=== PATIENT | female | born 1935 | race African-American/Black ===

== ENCOUNTER 2016-05-23 00:46 | Emergency (ER) | payer MEDICARE, MEDICAID ==
[2016-05-23] MEDS ORDERED: ACETAMINOPHEN 325 MG TABLET PO ONE (01:03)
--- NOTE | 2016-05-23 01:06 | ER Document Report ---
ED Medical Screen (RME) - General Chief Complaint: Headache <24 hrs old Stated Complaint: HEADACHE Notes: Patient is an 80-year-old female that comes emergency department for chief complaint of a headache that started this evening, she states it is on both sides for head, above her ears. She denies injury, fever, focal numbness or weakness, visual changes, imbalance. She is on aspirin, denies history of frequent headaches but states she has had similar headaches in the past. TRAVEL OUTSIDE OF THE [place] IN LAST 30 DAYS: No - Related Data Allergies/Adverse Reactions: No Known Allergies Allergy (Verified 07/13/15 23:10) Past Medical History - Social History Chew tobacco use (# tins/day): No Frequency of alcohol use: None Drug Abuse: None Family history: Reviewed & Not Pertinent - Past Medical History Cardiac Medical History: Reports: Hx Hypercholesterolemia, Hx Hypertension Denies: Hx Coronary Artery Disease, Hx Heart Attack Pulmonary Medical History: Denies: Hx Asthma, Hx Bronchitis, Hx COPD, Hx Pneumonia Neurological Medical History: Denies: Hx Cerebrovascular Accident, Hx Seizures Endocrine Medical History: Reports: Hx Diabetes Mellitus Type 2 Renal/ Medical History: Denies: Hx Peritoneal Dialysis GI Medical History: Reports: Hx Gastroesophageal Reflux Disease Musculoskeltal Medical History: Reports Hx Arthritis Past Surgical History: Reports: Hx Hysterectomy, Hx Orthopedic Surgery - Left Ankle. Denies: Hx Pacemaker - Immunizations Hx Diphtheria, Pertussis, Tetanus Vaccination: Yes Physical Exam - Vital signs Vitals: Temp Pulse Resp BP Pulse Ox 97.9 F 66 16 150/71 H 98 05/23/16 00:58 05/23/16 00:58 05/23/16 00:58 05/23/16 00:58 05/23/16 00:58 - Neurological Cognition: No: Confused, Inattentive, Short term memory loss Orientation: No: Disoriented to person, Disoriented to place, Disoriented to time [place] Coma Scale Eye Opening: Spontaneous [place] Coma Scale Verbal: Oriented [place] Coma Scale Motor: Obeys Commands [place] Coma Scale Total: 15 Speech: Normal. No: Dysarthria Cranial nerves: Normal. No: Facial palsy Cerebellar coordination: Other - walks with a cane Course - Re-evaluation Re-evalutation: Patient occasionally squinting her eyes and rubbing her head, otherwise no signs of distress, no focal neurological deficits. She states she thinks she has had a stroke or TIA. Patient somewhat poor historian, due to age and symptoms performing CT. Discussed with Dr. Carballo. - Vital Signs Vital signs: Temp Pulse Resp BP Pulse Ox 97.9 F 66 16 150/71 H 98 05/23/16 00:58 05/23/16 00:58 05/23/16 00:58 05/23/16 00:58 05/23/16 00:58
[2016-05-23 02:29] LABS: ABSOLUTE BASOPHILS # (AUTO) 0.1 10^3/uL (0.0-0.2); ABSOLUTE EOSINOPHILS # (AUTO) 0.1 10^3/uL (0.0-0.6); ABSOLUTE LYMPHOCYTES (AUTO) 1.9 10^3/uL (0.5-4.7); ABSOLUTE MONOCYTES (AUTO) 0.4 10^3/uL (0.1-1.4); ABSOLUTE NEUT (AUTO) 4.8 10^3/uL (1.7-8.2); BASOPHILS % (AUTO) 0.8 % (0-2); EOSINOPHILS % (AUTO) 0.9 % (0-6); HEMATOCRIT 37.8 % (36.0-47.0); HEMOGLOBIN 12.4 g/dL (12.0-15.5); HGB HCT DIFFERENCE -0.6; MEAN CORPUSCULAR HEMOGLOBIN 27.7 pg (27.0-33.4); MEAN CORPUSCULAR HGB CONC 32.7 g/dL (32.0-36.0); MEAN CORPUSCULAR VOLUME 85 fl (80-97); MONOCYTES % (AUTO) 5.7 % (3-13); RED BLOOD COUNT 4.45 10^6/uL (3.72-5.28); RED CELL DISTRIBUTION WIDTH 13.8 % (11.5-14.0); SEGMENTED NEUTROPHILS % (AUTO) 66.6 % (42-78); WHITE BLOOD COUNT 7.3 10^3/uL (4.0-10.5)
[2016-05-23 02:51] LABS: ANION GAP 13 (5-19); BLOOD UREA NITROGEN 10 mg/dL (7-20); CALCIUM 9.2 mg/dL (8.4-10.2); CARBON DIOXIDE 24 mmol/L (22-30); CHLORIDE 105 mmol/L (98-107); CREATININE RESULT 0.68 mg/dL (0.52-1.25); GLUCOSE 96 mg/dL (75-110); POTASSIUM 4.2 mmol/L (3.6-5.0); SODIUM 141.8 mmol/L (137-145)
--- NOTE | 2016-05-23 04:24 | ER Document Report ---
ED General - General Chief Complaint: Headache <24 hrs old Stated Complaint: HEADACHE Information source: Patient, Relative Notes: This is an 80-year-old -[place] Citizen female who presents to the emergency department for evaluation of a headache. She states that the headache began last night and is described as a throbbing bitemporal headache. She denies any fevers or chills. She has had no change in her vision. She's had no nausea or vomiting. She also denies any weakness or paresthesias or imbalance. TRAVEL OUTSIDE OF THE [place] IN LAST 30 DAYS: No - Related Data Allergies/Adverse Reactions: No Known Allergies Allergy (Verified 07/13/15 23:10) Past Medical History - Social History Smoking Status: Never Smoker Chew tobacco use (# tins/day): No Frequency of alcohol use: None Drug Abuse: None Family History: Reviewed & Not Pertinent Patient has suicidal ideation: No Patient has homicidal ideation: No - Past Medical History Cardiac Medical History: Reports: Hx Hypercholesterolemia, Hx Hypertension Denies: Hx Coronary Artery Disease, Hx Heart Attack Pulmonary Medical History: Denies: Hx Asthma, Hx Bronchitis, Hx COPD, Hx Pneumonia Neurological Medical History: Denies: Hx Cerebrovascular Accident, Hx Seizures Endocrine Medical History: Reports: Hx Diabetes Mellitus Type 2 Renal/ Medical History: Denies: Hx Peritoneal Dialysis GI Medical History: Reports: Hx Gastroesophageal Reflux Disease Musculoskeltal Medical History: Reports Hx Arthritis Past Surgical History: Reports: Hx Hysterectomy, Hx Orthopedic Surgery - Left Ankle. Denies: Hx Pacemaker - Immunizations Hx Diphtheria, Pertussis, Tetanus Vaccination: Yes Hx Pneumococcal Vaccination: 05/01/12 Review of Systems - Review of Systems Constitutional: denies: Chills, Fever EENT: No symptoms reported. denies: Eye pain, Nose congestion Cardiovascular: No symptoms reported. denies: Chest pain Respiratory: No symptoms reported. denies: Short of breath Gastrointestinal: No symptoms reported. denies: Nausea, Vomiting Genitourinary: No symptoms reported Musculoskeletal: No symptoms reported Neurological/Psychological: See HPI Physical Exam - Vital signs Vitals: Temp Pulse Resp BP Pulse Ox 97.9 F 66 16 150/71 H 98 05/23/16 00:58 05/23/16 00:58 05/23/16 00:58 05/23/16 00:58 05/23/16 00:58 - Notes Notes: PHYSICAL EXAMINATION: GENERAL: Well-appearing elderly female, pleasant and conversant and in no acute distress. HEAD: Atraumatic, normocephalic. No temporal tenderness to palpation EYES: Pupils equal round and reactive to light, extraocular movements intact, sclera anicteric, conjunctiva are normal. ENT: nares patent, oropharynx clear without exudates. Moist mucous membranes. NECK: Normal range of motion, supple without lymphadenopathy LUNGS: Breath sounds clear to auscultation bilaterally and equal. No wheezes rales or rhonchi. HEART: Regular rate and rhythm without murmurs ABDOMEN: Soft, nontender, normoactive bowel sounds. No guarding, no rebound. No masses appreciated. EXTREMITIES: Normal range of motion, no pitting or edema. No cyanosis. NEUROLOGICAL: Cranial nerves grossly intact. Normal speech motor strength +5 over 5 in the bilateral upper and lower extremities. Sensation intact. PSYCH: Normal mood, normal affect. SKIN: Warm, Dry, normal turgor, no rashes or lesions noted. Course - Re-evaluation Re-evalutation: 05/23/16 04:28 During the time that she has been in the emergency department the patient states that her headache has resolved after taking the Tylenol. At this time she feels fine and has no complaints. Her head CT is reviewed and is negative. Her labs are reassuring. She has a nonfocal and normal neurologic exam. At this time she'll be discharged home to follow up with her primary care physician. We discussed strict return precautions to include fevers and worsening headache and balance numbness tingling. Patient and her daughter are both agreeable with this plan and all questions were answered. - Vital Signs Vital signs: Temp Pulse Resp BP Pulse Ox 97.1 F 74 18 133/88 H 95 05/23/16 04:52 05/23/16 04:52 05/23/16 04:52 05/23/16 04:52 05/23/16 04:52 - Laboratory Result Diagrams: 05/23/16 02:05 05/23/16 02:05 - Diagnostic Test Radiology reviewed: Reports reviewed - Head CT negative Discharge - Discharge Clinical Impression: Cephalgia Qualifiers: Headache type: unspecified Headache chronicity pattern: unspecified pattern Intractability: not intractable Qualified Code(s): R51 - Headache Condition: Stable Disposition: HOME, SELF-CARE Additional Instructions: Your laboratory and imaging studies in the ER today did not demonstrate any serious process at this time. Please follow up with your primary physician this week. You may take Tylenol as directed for headache. Return to the emergency department for any fever or worsening headache, or for any vision problems or numbness or tingling. Also return for any worsening symptoms or concerns. Referrals: MK COSTELLO PA-C [Primary Care Provider] - Follow up as needed
[2016-05-23 04:54] VITALS: BP 133/88
== END 2016-05-23 04:52 | disposition home or self-care (01) ==
LOC: ER 00:46
DX: R51 Headache (principal); E78.00 Pure hypercholesterolemia, unspecified; I10 Essential (primary) hypertension; E11.9 Type 2 diabetes mellitus without complications; Z90.710 Acquired absence of both cervix and uterus
CPT/HCPCS: 99284; 36415; 85025; 80048; 70450; A9270

== ENCOUNTER 2016-08-11 14:16 | Emergency (ER) | payer MEDICARE, MEDICAID ==
--- NOTE | 2016-08-11 14:45 | ER Document Report ---
ED General - General Chief Complaint: Arm Pain Stated Complaint: LEFT ARM PAIN Time Seen by Provider: 08/11/16 14:18 Notes: The patient is an 81-year-old female, past medical history hypertension, hyperlipidemia, OA, presents with 2 days of intermittent left bicep tingling and left thigh tingling. She has not had similar symptoms in the past. She denies headache, weakness, injury, back pain, neck pain, fevers, chest pain, shortness of breath, nausea, vomiting, ataxia, blurry vision or urinary symptoms. TRAVEL OUTSIDE OF THE [place] IN LAST 30 DAYS: No - Related Data Allergies/Adverse Reactions: No Known Allergies Allergy (Verified 07/13/15 23:10) Past Medical History - General Information source: Patient - Social History Smoking Status: Never Smoker Family History: Reviewed & Not Pertinent - Past Medical History Cardiac Medical History: Reports: Hx Hypercholesterolemia, Hx Hypertension Denies: Hx Coronary Artery Disease, Hx Heart Attack Pulmonary Medical History: Denies: Hx Asthma, Hx Bronchitis, Hx COPD, Hx Pneumonia Neurological Medical History: Denies: Hx Cerebrovascular Accident, Hx Seizures Endocrine Medical History: Reports: Hx Diabetes Mellitus Type 2 Renal/ Medical History: Denies: Hx Peritoneal Dialysis GI Medical History: Reports: Hx Gastroesophageal Reflux Disease Musculoskeltal Medical History: Reports Hx Arthritis Past Surgical History: Reports: Hx Hysterectomy, Hx Orthopedic Surgery - Left Ankle. Denies: Hx Pacemaker - Immunizations Hx Diphtheria, Pertussis, Tetanus Vaccination: Yes Hx Pneumococcal Vaccination: 05/01/12 Review of Systems - Review of Systems Notes: REVIEW OF SYSTEMS: CONSTITUTIONAL: -fevers, -chills EENT: -eye pain, -difficulty swallowing, -nasal congestion CARDIOVASCULAR:-chest pain, -syncope. RESPIRATORY: -cough, -SOB GASTROINTESTINAL: -abdominal pain, - nausea, -vomiting, -diarrhea GENITOURINARY: -dysuria, -hematuria MUSCULOSKELETAL: -back pain, -neck pain SKIN: -rash or skin lesions. HEMATOLOGIC: -easy bruising or bleeding. LYMPHATIC: -swollen, enlarged glands. NEUROLOGICAL: +left bicep and thigh tingling, -altered mental status or loss of consciousness, -headache PSYCHIATRIC: -anxiety, -depression. ALL OTHER SYSTEMS REVIEWED AND NEGATIVE. Physical Exam - Vital signs Vitals: Temp Pulse Resp BP Pulse Ox 98.9 F 73 18 138/66 H 97 08/11/16 14:20 08/11/16 14:20 08/11/16 14:20 08/11/16 14:20 08/11/16 14:20 - Notes Notes: PHYSICAL EXAMINATION: GENERAL: Well-appearing, well-nourished and in no acute distress. HEAD: Atraumatic, normocephalic. EYES: Pupils equal round and reactive to light, extraocular movements intact, sclera anicteric, conjunctiva are normal. ENT: nares patent, oropharynx clear without exudates. Moist mucous membranes. NECK: Normal range of motion, supple without lymphadenopathy LUNGS: Breath sounds clear to auscultation bilaterally and equal. No wheezes rales or rhonchi. HEART: Regular rate and rhythm without murmurs ABDOMEN: Soft, nontender, normoactive bowel sounds. No guarding, no rebound. No masses appreciated. EXTREMITIES: Normal range of motion, no pitting or edema. No cyanosis. Strong distal pulses. NEUROLOGICAL: Tingling over left medial biceps and anterior thigh, cranial nerves grossly intact. Normal speech, normal gait. Normal motor exams. PSYCH: Normal mood, normal affect. SKIN: Warm, Dry, normal turgor, no rashes or lesions noted. Course - Re-evaluation Re-evalutation: Patient's symptoms do not fit a particular neurologic pattern for a CVA. She would not be a TPA candidate anyway due to fluctuating symptoms and 2 days since onset. Suspect peripheral neuropathy from spinal stenosis. Will obtain EKG, labs and reassess. Labs, EKG and CXR do not show any concerning abnormalities. Instructed patient to follow-up with her primary care physician this week for further evaluation and treatment - Vital Signs Vital signs: Temp Pulse Resp BP Pulse Ox 98.9 F 73 18 138/66 H 97 08/11/16 14:20 08/11/16 14:20 08/11/16 14:20 08/11/16 14:20 08/11/16 14:20 - Laboratory Result Diagrams: 08/11/16 15:30 08/11/16 15:30 Laboratory results interpreted by me: 08/11/16 08/11/16 15:30 15:30 Hgb 11.6 L RDW 14.1 H Creatine Kinase 154 H - Diagnostic Test Radiology reviewed: Image reviewed, Reports reviewed - EKG Interpretation by Nh EKG shows normal: Sinus rhythm, [place], Intervals, QRS Complexes Rate: Normal [place]/QRS: Left axis deviation When compared to previous EKG there are: No significant change Additional EKG results interpreted by me: Old lateral T-wave abnormalities Discharge - Discharge Clinical Impression: Tingling in extremities Condition: Stable Disposition: HOME, SELF-CARE Additional Instructions: Neuropathy Your symptoms may be due to neuropathy. Neuropathy is nerve damage. There are many causes, including diabetes, immune disease, alcohol, blood vessel disease, and vitamin deficiency. The usual symptoms are pain and numbness. Neuropathy can occur anywhere, but it's most likely in the "longest" nerves. That's why the feet are most often affected. Sometimes the nerve damage can heal. But if the symptoms have lasted more than a few months, the damage is permanent. To avoid further damage, treat your underlying health problems carefully. If you have diabetes, keep the blood sugar as normal as possible. Avoid alcohol. Treat high blood pressure and high cholesterol. Treating chronic pain can be a problem. Obviously, you don't want to become addicted to pain medicine. Work closely with your doctor on pain management. Your options include antiinflammatory medicine, anti seizure medicine, antidepressants, and pain clinic management. Contact the doctor if there is a significant change.
[2016-08-11 15:55] LABS: ABSOLUTE LYMPHOCYTES (AUTO) 1.6 10^3/uL (0.5-4.7); ABSOLUTE MONOCYTES (AUTO) 0.4 10^3/uL (0.1-1.4); ABSOLUTE NEUT (AUTO) 5.8 10^3/uL (1.7-8.2); BASOPHILS % (AUTO) 0.5 % (0-2); EOSINOPHILS % (AUTO) 0.4 % (0-6); HEMATOCRIT 36.3 % (36.0-47.0); HEMOGLOBIN 11.6 g/dL (12.0-15.5); HGB HCT DIFFERENCE -1.5; LYMPHOCYTES % (AUTO) 20.4 % (13-45); MEAN CORPUSCULAR HEMOGLOBIN 27.1 pg (27.0-33.4); MEAN CORPUSCULAR HGB CONC 32.1 g/dL (32.0-36.0); MEAN CORPUSCULAR VOLUME 84 fl (80-97); MONOCYTES % (AUTO) 5.4 % (3-13); RED CELL DISTRIBUTION WIDTH 14.1 % (11.5-14.0); SEGMENTED NEUTROPHILS % (AUTO) 73.3 % (42-78); WHITE BLOOD COUNT 7.8 10^3/uL (4.0-10.5)
[2016-08-11 16:14] LABS: ALANINE AMINOTRANSFERASE 27 U/L (9-52); ALKALINE PHOSPHATASE 98 U/L (38-126); ANION GAP 13 (5-19); ASPARTATE AMINO TRANSFERASE 19 U/L (14-36); BILIRUBIN,DIRECT 0.2 mg/dL (0.0-0.4); BILIRUBIN,TOTAL 0.4 mg/dL (0.2-1.3); BLOOD UREA NITROGEN 10 mg/dL (7-20); CALCIUM 9.6 mg/dL (8.4-10.2); CARBON DIOXIDE 27 mmol/L (22-30); CHLORIDE 102 mmol/L (98-107); CREATINE KINASE 154 U/L (30-135); CREATININE RESULT 0.67 mg/dL (0.52-1.25); GLUCOSE 101 mg/dL (75-110); LIPASE 36.9 U/L (23-300); POTASSIUM 4.7 mmol/L (3.6-5.0); TOTAL PROTEIN 6.7 g/dL (6.3-8.2)
[2016-08-11 16:27] LABS: TROPONIN I < 0.012 ng/mL
[2016-08-11 16:45] VITALS: BP 133/73
--- NOTE | 2016-08-11 17:45 | EKG REPORT ---
SEVERITY:- ABNORMAL ECG - SINUS RHYTHM MULTIPLE VENTRICULAR PREMATURE COMPLEXES BORDERLINE LEFT AXIS DEVIATION NONSPECIFIC T ABNORMALITIES, LATERAL LEADS : Confirmed by: Erika Holland MD 11-Aug-2016 17:45:10
== END 2016-08-11 17:05 | disposition home or self-care (01) ==
LOC: ER 14:16
DX: R20.2 Paresthesia of skin (principal); I10 Essential (primary) hypertension; E11.9 Type 2 diabetes mellitus without complications; R94.31 Abnormal electrocardiogram [ECG] [EKG]
CPT/HCPCS: 36415; 71010; 80048; 80076; 82550; 83690; 83880; 84484; 85025; 93005; 93010; 99284

== ENCOUNTER 2016-08-16 14:20 | Emergency (ER) | payer MEDICARE, MEDICAID ==
--- NOTE | 2016-08-16 15:23 | ER Document Report ---
ED Medical Screen (RME) - General Chief Complaint: Numbness of Arm Stated Complaint: LEFT ARM NUMBNESS Time Seen by Provider: 08/16/16 15:21 Mode of Arrival: Wheelchair Information source: Patient Notes: Patient presents complaining of left arm pain and tingling. Patient describes a heaviness in her left arm. Patient states pain has been off and on for the past week. Patient denies any chest pain, abdominal pain, or back pain hx: Patient, borderline diabetes, hysterectomy TRAVEL OUTSIDE OF THE [place] IN LAST 30 DAYS: No - Related Data Allergies/Adverse Reactions: No Known Allergies Allergy (Verified 07/13/15 23:10) Past Medical History - Social History Family history: Reviewed & Not Pertinent - Past Medical History Cardiac Medical History: Reports: Hx Hypercholesterolemia, Hx Hypertension Denies: Hx Coronary Artery Disease, Hx Heart Attack Pulmonary Medical History: Denies: Hx Asthma, Hx Bronchitis, Hx COPD, Hx Pneumonia Neurological Medical History: Denies: Hx Cerebrovascular Accident, Hx Seizures Endocrine Medical History: Reports: Hx Diabetes Mellitus Type 2 Renal/ Medical History: Denies: Hx Peritoneal Dialysis GI Medical History: Reports: Hx Gastroesophageal Reflux Disease Musculoskeltal Medical History: Reports Hx Arthritis Past Surgical History: Reports: Hx Hysterectomy, Hx Orthopedic Surgery - Left Ankle. Denies: Hx Pacemaker - Immunizations Hx Diphtheria, Pertussis, Tetanus Vaccination: Yes Physical Exam - Vital signs Vitals: Temp Pulse Resp BP Pulse Ox 97.8 F 69 16 133/50 H 99 08/16/16 14:26 08/16/16 14:26 08/16/16 14:08/16/16 14:08/16/16 14:26 - Extremities General upper extremity: Normal inspection, Tender - Left upper arm, Normal color, Normal ROM, Normal strength, Other - 2+ radial pulse to left upper extremity. No: Edema Course - Vital Signs Vital signs: Temp Pulse Resp BP Pulse Ox 97.8 F 69 16 133/50 H 99 08/16/16 14:26 08/16/16 14:26 08/16/16 14:26 08/16/16 14:08/16/16 14:26
[2016-08-16 16:02] LABS: ABSOLUTE EOSINOPHILS # (AUTO) 0.1 10^3/uL (0.0-0.6); ABSOLUTE LYMPHOCYTES (AUTO) 2.1 10^3/uL (0.5-4.7); ABSOLUTE MONOCYTES (AUTO) 0.4 10^3/uL (0.1-1.4); ABSOLUTE NEUT (AUTO) 5.6 10^3/uL (1.7-8.2); BASOPHILS % (AUTO) 0.5 % (0-2); EOSINOPHILS % (AUTO) 0.6 % (0-6); HEMATOCRIT 37.6 % (36.0-47.0); HEMOGLOBIN 12.2 g/dL (12.0-15.5); LYMPHOCYTES % (AUTO) 25.7 % (13-45); MEAN CORPUSCULAR HEMOGLOBIN 27.4 pg (27.0-33.4); MEAN CORPUSCULAR HGB CONC 32.5 g/dL (32.0-36.0); MEAN CORPUSCULAR VOLUME 84 fl (80-97); MONOCYTES % (AUTO) 4.6 % (3-13); RED BLOOD COUNT 4.46 10^6/uL (3.72-5.28); RED CELL DISTRIBUTION WIDTH 14.1 % (11.5-14.0); SEGMENTED NEUTROPHILS % (AUTO) 68.6 % (42-78); WHITE BLOOD COUNT 8.1 10^3/uL (4.0-10.5)
--- NOTE | 2016-08-16 16:10 | RADIOLOGY REPORT (SQ) ---
EXAM DESCRIPTION: CHEST PA/LAT COMPLETED DATE/TIME: 08/16/2016 3:56 pm REASON FOR STUDY: L arm pain COMPARISON: None. EXAM PARAMETERS: NUMBER OF VIEWS: two views TECHNIQUE: Digital Frontal and Lateral radiographic views of the chest acquired. RADIATION DOSE: NA LIMITATIONS: none FINDINGS: LUNGS AND PLEURA: Linear increased density in the right base consistent with atelectasis o r scarring. Remainder lungs are clear. No effusions. MEDIASTINUM AND HILAR STRUCTURES: No masses or contour abnormalities. HEART AND VASCULAR STRUCTURES: Heart normal size. No evidence for failure. BONES: No acute findings. HARDWARE: None in the chest. Osteopenia. Mild thoracic spondylosis. OTHER: No other significant finding. IMPRESSION: Mild right basilar atelectasis or scarring. TECHNICAL DOCUMENTATION: JOB ID: [id number] [employer]- All Rights Reserved
[2016-08-16 16:30] LABS: ALANINE AMINOTRANSFERASE 22 U/L (9-52); ALBUMIN 4.3 g/dL (3.5-5.0); ALKALINE PHOSPHATASE 100 U/L (38-126); ANION GAP 14 (5-19); ASPARTATE AMINO TRANSFERASE 20 U/L (14-36); BILIRUBIN,DIRECT 0.4 mg/dL (0.0-0.4); BILIRUBIN,TOTAL 0.6 mg/dL (0.2-1.3); BLOOD UREA NITROGEN 12 mg/dL (7-20); CALCIUM 9.9 mg/dL (8.4-10.2); CARBON DIOXIDE 24 mmol/L (22-30); CHLORIDE 104 mmol/L (98-107); CREATINE KINASE 192 U/L (30-135); CREATININE RESULT 0.68 mg/dL (0.52-1.25); GLUCOSE 110 mg/dL (75-110); POTASSIUM 4.1 mmol/L (3.6-5.0); SODIUM 141.9 mmol/L (137-145); TOTAL PROTEIN 7.4 g/dL (6.3-8.2)
[2016-08-16 16:38] LABS: CREATINE KINASE MB 1.34 ng/mL (<4.55)
[2016-08-16 16:40] LABS: TROPONIN I < 0.012 ng/mL
--- NOTE | 2016-08-16 18:39 | EKG REPORT ---
SEVERITY:- ABNORMAL ECG - SINUS RHYTHM VENTRICULAR PREMATURE COMPLEX BORDERLINE LEFT AXIS DEVIATION NONSPECIFIC T ABNORMALITIES, LATERAL LEADS : Confirmed by: Cricket Fuentes MD 16-Aug-2016 18:38:03
[2016-08-16] MEDS ORDERED: NAPROXEN 250 MG TABLET PO ONE (19:35)
--- NOTE | 2016-08-16 19:35 | ER Document Report ---
ED General - General Chief Complaint: Numbness of Arm Stated Complaint: LEFT ARM NUMBNESS Time Seen by Provider: 08/16/16 15:21 Mode of Arrival: Wheelchair Notes: Patient is an 81-year-old female who presents with intermittent paresthesias of her left upper extremity. Patient was seen approximately 5 days ago for the same complaint but notes that her symptoms have not yet resolved so she went to be reassessed. Describes as a intermittent loss of sensation over her biceps and deltoid intermittently involved her pinky on the left side. No history of similar symptoms prior to the past week. She has not been trying anything to improve her symptoms. Nothing is noted to treat his symptoms and they do resolve spontaneously. She denies any weakness, numbness in any other location , difficulty with ambulation or speech. TRAVEL OUTSIDE OF THE [place] IN LAST 30 DAYS: No - Related Data Allergies/Adverse Reactions: No Known Allergies Allergy (Verified 07/13/15 23:10) Past Medical History - General Information source: Patient - Social History Smoking Status: Never Smoker Chew tobacco use (# tins/day): No Frequency of alcohol use: None Drug Abuse: None Lives with: Family Family History: Reviewed & Not Pertinent - Past Medical History Cardiac Medical History: Reports: Hx Hypercholesterolemia, Hx Hypertension Denies: Hx Coronary Artery Disease, Hx Heart Attack Pulmonary Medical History: Denies: Hx Asthma, Hx Bronchitis, Hx COPD, Hx Pneumonia Neurological Medical History: Denies: Hx Cerebrovascular Accident, Hx Seizures Endocrine Medical History: Reports: Hx Diabetes Mellitus Type 2 Renal/ Medical History: Denies: Hx Peritoneal Dialysis GI Medical History: Reports: Hx Gastroesophageal Reflux Disease Musculoskeltal Medical History: Reports Hx Arthritis Past Surgical History: Reports: Hx Hysterectomy, Hx Orthopedic Surgery - Left Ankle. Denies: Hx Pacemaker - Immunizations Hx Diphtheria, Pertussis, Tetanus Vaccination: Yes Hx Pneumococcal Vaccination: 05/01/12 Review of Systems - Review of Systems Notes: Constitutional: Negative for fever. HENT: Negative for sore throat. Eyes: Negative for visual changes. Cardiovascular: Negative for chest pain. Respiratory: Negative for shortness of breath. Gastrointestinal: Negative for abdominal pain, vomiting or diarrhea. Genitourinary: Negative for dysuria. Musculoskeletal: Negative for back pain. Skin: Negative for rash. Neurological: Negative for headaches, weakness positive for left upper extremity paresthesia 10 point ROS negative except as marked above and in HPI. Physical Exam - Vital signs Vitals: Temp Pulse Resp BP Pulse Ox 97.8 F 69 16 133/50 H 99 08/16/16 14:26 08/16/16 14:26 08/16/16 14:26 08/16/16 14:26 08/16/16 14:26 Interpretation: Normal Notes: PHYSICAL EXAMINATION: GENERAL: Well-appearing, well-nourished and in no acute distress. HEAD: Atraumatic, normocephalic. EYES: Pupils equal round and reactive to light, extraocular movements intact, sclera anicteric, conjunctiva are normal. ENT: nares patent, oropharynx clear without exudates. Moist mucous membranes. NECK: Normal range of motion, supple without lymphadenopathy LUNGS: Breath sounds clear to auscultation bilaterally and equal. No wheezes rales or rhonchi. HEART: Regular rate and rhythm without murmurs ABDOMEN: Soft, nontender, normoactive bowel sounds. No guarding, no rebound. No masses appreciated. EXTREMITIES: Normal range of motion, no pitting or edema. No cyanosis. NEUROLOGICAL: Face symmetric. Tongue protrudes midline. Extraocular motions intact. Pupils are 2 mm and equally reactive. Normal speech, normal gait. 5 out of 5 strength in both the distal and proximal upper and lower extremities bilaterally. Sensation is grossly intact throughout. Finger to nose testing normal. Pronator drift normal. PSYCH: Normal mood, normal affect. SKIN: Warm, Dry, normal turgor, no rashes or lesions noted. Course - Re-evaluation Re-evalutation: 08/16/16 19:29 Patient presents with 6 days of intermittent tingling over the biceps and into the forearm as well as the fifth digit of the left upper extremity. She has no focal neurologic deficit on exam. Full sensory distribution is intact in RMU distribution. Normal 5 out of 5 biceps and triceps strength bilaterally. Symptoms have been fluctuating over the last 6 days in the distribution of her symptoms is not consistent with an acute CVA or TIA. Anticipate that she is having a low cervical nerve root impingement versus a brachial plexopathy based on her history. I recommended ongoing conservative therapy with NSAIDs, physical therapy, and outpatient follow-up. At this time will discharge with return precautions and follow-up recommendations. Verbal discharge instructions given a the bedside and opportunity for questions given. Medication warnings reviewed. Patient is in agreement with this plan and has verbalized understanding of return precautions and the need for primary care follow-up in the next 24-72 hours. - Vital Signs Vital signs: Temp Pulse Resp BP Pulse Ox 98.5 F 65 17 144/69 H 97 08/16/16 20:53 08/16/16 20:53 08/16/16 20:53 08/16/16 20:53 08/16/16 20:53 - Laboratory Result Diagrams: 08/16/16 15:45 08/16/16 15:45 Laboratory results interpreted by me: 08/16/16 08/16/16 15:45 15:45 RDW 14.1 H Creatine Kinase 192 H - Diagnostic Test Radiology reviewed: Image reviewed, Reports reviewed Radiology results interpreted by me: 08/16/16 19:32 Chest x-ray: No acute infiltrate or pneumothorax - EKG Interpretation by Me Additional EKG results interpreted by me: 08/16/16 19:32 Normal sinus rhythm. Rate 67. No ST elevations or depressions. Intermittent pvcs. QTc 372. Discharge - Discharge Clinical Impression: Tingling in extremities Condition: Good Disposition: HOME, SELF-CARE Additional Instructions: Take one naproxen 220 mg tablet (can be purchased directly over the counter also known as Aleve) daily. You could alternatively take ibuprofen 400 mg 3 times daily. Follow-up with your primary doctor. Return for worsening of your symptoms, weakness, chest pain or any other symptoms that are worrisome to you. Referrals: MK COSTELLO PA-C [Primary Care Provider] - Follow up as needed GÓMEZ STRINGER MD [ACTIVE STAFF] - Follow up as needed
[2016-08-16 20:57] VITALS: BP 144/69
== END 2016-08-16 20:59 | disposition home or self-care (01) ==
LOC: ER 14:20
DX: R20.2 Paresthesia of skin (principal); E11.9 Type 2 diabetes mellitus without complications; I49.3 Ventricular premature depolarization; I10 Essential (primary) hypertension
CPT/HCPCS: 36415; 71020; 80053; 82550; 82553; 84484; 85025; 93005; 93010; 99284

== ENCOUNTER → 2016-08-27 | Outpatient (CLI) | payer MEDICARE, MEDICAID ==
--- NOTE | 2016-08-27 10:00 | RADIOLOGY REPORT (SQ) ---
EXAM DESCRIPTION: SHOULDER LEFT 2 OR MORE VIEWS COMPLETED DATE/TIME: 08/27/2016 9:46 am REASON FOR STUDY: LEFT SHOULDER PAIN (M25.512) M25.512 PAIN IN LEFT SHOULDER COMPARISON: 01/02/2011 NUMBER OF VIEWS: Three views. TECHNIQUE: Internal rotation, external rotation, and Y view images acquired of the left shoulder. LIMITATIONS: None. FINDINGS: MINERALIZATION: Normal. BONES: No acute fracture or dislocation. No worrisome bone lesions. JOINTS: Degenerative changes in the AC joint and glenohumeral joint are again noted and not significa ntly changed from prior study. VISUALIZED LUNGS AND RIBS: No pneumothorax. No rib fracture. SOFT TISSUES: No radiopaque foreign body. OTHER: No other significant finding. IMPRESSION: Degenerative changes. No acute findings. TECHNICAL DOCUMENTATION: JOB ID: [id number] [employer]- All Rights Reserved
== END ==
LOC: RAD 09:27
PROVIDERS: ATTEND Physician Assistant
DX: M25.512 Pain in left shoulder (principal)

== ENCOUNTER 2017-08-08 12:16 | Emergency (ER) | payer MEDICARE, MEDICAID ==
[2017-08-08 12:25] VITALS: BP 129/72
[2017-08-08] MEDS ORDERED: ACETAMINOPHEN 325 MG TABLET PO ONE (12:59)
--- NOTE | 2017-08-08 13:01 | ER Document Report ---
ED Fall - General Chief Complaint: Fall Stated Complaint: HEAD PAIN Time Seen by Provider: 08/08/17 12:47 Mode of Arrival: Medic Information source: Patient Notes: Patient states that she was attempting to get into the shower and slipped hitting the back of her head on the edge of the bathtub. Patient denies any loss of consciousness, nausea or vomiting. Patient complains of pain to the occipital scalp area. TRAVEL OUTSIDE OF THE [place] IN LAST 30 DAYS: No - HPI Occurred: Just prior to arrival Where: Home Context: Fell from standing Associated symptoms: None. denies: Dazed/confused, Seizure, Difficulty breathing, Difficulty walking, Became dizzy/fainted Location of injury/pain: Head Quality of pain: Achy Pain Level: 2 - Related data Allergies/Adverse Reactions: No Known Allergies Allergy (Verified 07/13/15 23:10) Past Medical History - General Information source: Patient - Social History Smoking Status: Never Smoker Chew tobacco use (# tins/day): No Frequency of alcohol use: None Drug Abuse: None Occupation: None Lives with: Alone Family History: Reviewed & Not Pertinent Patient has suicidal ideation: No Patient has homicidal ideation: No - Past Medical History Cardiac Medical History: Reports: Hx Hypercholesterolemia, Hx Hypertension Denies: Hx Coronary Artery Disease, Hx Heart Attack Pulmonary Medical History: Denies: Hx Asthma, Hx Bronchitis, Hx COPD, Hx Pneumonia Neurological Medical History: Denies: Hx Cerebrovascular Accident, Hx Seizures Endocrine Medical History: Reports: Hx Diabetes Mellitus Type 2 Renal/ Medical History: Denies: Hx Peritoneal Dialysis GI Medical History: Reports: Hx Gastroesophageal Reflux Disease Musculoskeltal Medical History: Reports Hx Arthritis Past Surgical History: Reports: Hx Hysterectomy, Hx Orthopedic Surgery - Left Ankle. Denies: Hx Pacemaker - Immunizations Hx Diphtheria, Pertussis, Tetanus Vaccination: Yes Hx Pneumococcal Vaccination: 05/01/12 Review of Systems - Review of Systems Constitutional: No symptoms reported. denies: Fever, Recent illness EENT: No symptoms reported Cardiovascular: No symptoms reported. denies: Chest pain Respiratory: No symptoms reported. denies: Cough, Short of breath Gastrointestinal: No symptoms reported. denies: Abdominal pain, Nausea, Vomiting Genitourinary: No symptoms reported Female Genitourinary: No symptoms reported Musculoskeletal: No symptoms reported. denies: Back pain, Neck pain Skin: No symptoms reported Hematologic/Lymphatic: No symptoms reported Neurological/Psychological: Headaches. denies: Confusion, Weakness, Gait changes, Loss of power, Lost consciousness Physical Exam - Vital signs Vitals: Temp Pulse Resp BP Pulse Ox 98.5 F 76 17 129/72 H 98 08/08/17 12:21 08/08/17 12:21 08/08/17 12:21 08/08/17 12:21 08/08/17 12:21 - General General appearance: Appears well, Alert In distress: None - HEENT Head: Normocephalic, Tenderness - occipital scalp. No: Abrasions, Couch's sign , Ecchymosis, [place]'s eyes Eyes: Normal Conjunctiva: Normal Extraocular movements intact: Yes Eyelashes: Normal Pupils: PERRL Ears: Normal External canal: Normal Tympanic membrane: Normal. No: Hemotympanum Nasal: Normal Mouth/Lips: Normal Mucous membranes: Normal Pharynx: Normal Neck: Normal, Supple. No: Lymphadenopathy Notes: No cervical midline tenderness, step-off or deformity - Respiratory Respiratory status: No respiratory distress Chest status: Nontender Breath sounds: Normal. No: Rales, Rhonchi, Stridor, Wheezing Chest palpation: Normal - Cardiovascular Rhythm: Regular Heart sounds: S1 appreciated, S2 appreciated Murmur: No - Abdominal Inspection: Normal Distension: No distension Bowel sounds: Normal Tenderness: Nontender Organomegaly: No organomegaly - Back Back: Normal, Nontender. No: Deformity/step-off, CVA tenderness, Vertebra tenderness - Extremities General upper extremity: Normal inspection, Nontender, Normal ROM. No: Edema General lower extremity: Normal inspection, Nontender, Normal ROM. No: Edema - Neurological Neuro grossly intact: Yes Orientation: AAOx4 Pancho Coma Scale Eye Opening: Spontaneous [place]kins Coma Scale Verbal: Oriented Pancho Coma Scale Motor: Obeys Commands Elkins Coma Scale Total: 15 Speech: Normal. No: Dysarthria Cranial nerves: Normal. No: Facial palsy, Tongue deviation Motor strength normal: LUE, RUE, LLE, RLE - Psychological Associated symptoms: Normal affect, Normal mood - Skin Skin Temperature: Warm Skin Moisture: Dry Skin Color: Normal Course - Re-evaluation Re-evalutation: 08/08/17 13:51 Patient continues awake, alert and oriented. No nausea or vomiting. No loss of consciousness and no change in mental status. Patient without any focal neurologic deficit. Discussed worsening symptoms that patient should return immediately for further evaluation. Patient and family encouraged that patient should either stay with family or have a family member stay with them for the next day to observe for any change in her status. Family agrees to stay with patient after discharge. - Vital Signs Vital signs: Temp Pulse Resp BP Pulse Ox 98.5 F 76 17 129/72 H 98 08/08/17 12:21 08/08/17 12:21 08/08/17 12:21 08/08/17 12:21 08/08/17 12:21 - Diagnostic Test Radiology reviewed: Reports reviewed Discharge - Discharge Clinical Impression: Fall Qualifiers: Encounter type: initial encounter Qualified Code(s): W19.XXXA - Unspecified fall, initial encounter Head injury Qualifiers: Encounter type: initial encounter Qualified Code(s): S09.90XA - Unspecified injury of head, initial encounter Condition: Stable Disposition: HOME, SELF-CARE Instructions: Acetaminophen, Head Injury Precautions ([facility]) Additional Instructions: Return immediately for any new or worsening symptoms Followup with your primary care provider, call tomorrow to make a followup appointment Referrals: MK COSTELLO PA-C [Primary Care Provider] - Follow up tomorrow
--- NOTE | 2017-08-08 13:16 | RADIOLOGY REPORT (SQ) ---
EXAM DESCRIPTION: CT HEAD WITHOUT COMPLETED DATE/TIME: 08/08/2017 12:52 pm REASON FOR STUDY: fall COMPARISON: CT brain 01/02/2011, 09/14/2012, 09/21/2015, 05/23/2016 TECHNIQUE: Axial images acquired through the brain without intravenous contrast. Images reviewed wi th bone, brain and subdural windows. Additional sagittal and coronal reconstructions were generated. Images stored on PACS. All CT scanners at this facility use dose modulation, iterative reconstruction, and/or weight based d osing when appropriate to reduce radiation dose to as low as reasonably achievable (ALARA). [facility]: Dose Right [facility]: CareDose [facility]: Dose Right [facility]: Teradose 4D [facility]: [employer] RADIATION DOSE: CT Rad equipment meets quality standard of care and radiation dose reduction techniq ues were employed. CTDIvol: 53.2 mGy. DLP: 1017 mGy-cm. mGy. LIMITATIONS: None. FINDINGS: VENTRICLES: Normal size and contour. CEREBRUM: No masses. No hemorrhage. No midline shift. No evidence for acute infarction. Few scatte red areas of low density in the white matter most likely chronic small vessel ischemic changes. CEREBELLUM: No masses. No hemorrhage. No alteration of density. No evidence for acute infarction. EXTRAAXIAL SPACES: No fluid collections. No masses. ORBITS AND GLOBE: No intra- or extraconal masses. Normal contour of globe without masses. CALVARIUM: No fracture. PARANASAL SINUSES: No fluid or mucosal thickening. SOFT TISSUES: No mass or hematoma. OTHER: No other significant finding. IMPRESSION: No acute changes. EVIDENCE OF ACUTE STROKE: NO. COMMENT: Quality ID # [id number]: Final reports with documentation of one or more dose reduction techniques (e.g., Automated exposure control, adjustment of the mA and/or kV according to patient size, use of iterative reconstruction technique) TECHNICAL DOCUMENTATION: JOB ID: [id number] [employer]- All Rights Reserved Reading location - IP/workstation name: [email or web address]
--- NOTE | 2017-08-08 13:19 | RADIOLOGY REPORT (SQ) ---
EXAM DESCRIPTION: CT CERVICAL SPINE WITHOUT COMPLETED DATE/TIME: 08/08/2017 12:52 pm REASON FOR STUDY: fall COMPARISON: None. TECHNIQUE: Axial images acquired through the cervical spine without intravenous contrast. Images re viewed with lung, soft tissue and bone windows. Reconstructed coronal and sagittal MPR images review ed. Images stored on PACS. All CT scanners at this facility use dose modulation, iterative reconstruction, and/or weight based d osing when appropriate to reduce radiation dose to as low as reasonably achievable (ALARA). [facility]: Dose Right [facility]: CareDose [facility]: Dose Right [facility]: Teradose 4D [facility]: [employer] RADIATION DOSE: CT Rad equipment meets quality standard of care and radiation dose reduction techniq ues were employed. CTDIvol: 21.9 mGy. DLP: 385 mGy-cm. mGy. LIMITATIONS: None. FINDINGS: ALIGNMENT: Anatomic. MINERALIZATION: Normal. VERTEBRAL BODIES: No fractures or dislocation. DISCS: No significant disc disease. Minimal posterior bony spurring from C3-4 through C6-7. Very mi ld bilateral foraminal narrowing at C4-5, C5-6, and C6-7. FACETS, LATERAL MASSES, POSTERIOR ELEMENTS: No fractures. No dislocation. No acute findings. HARDWARE: None in the spine. VISUALIZED RIBS: No fractures. LUNG APICES AND SOFT TISSUES: No significant or acute findings. OTHER: No other significant finding. IMPRESSION: No acute changes TECHNICAL DOCUMENTATION: JOB ID: [id number] Quality ID # [id number]: Final reports with documentation of one or more dose reduction techniques (e.g., Au tomated exposure control, adjustment of the mA and/or kV according to patient size, use of iterative reconstruction technique) 2010 [employer]- All Rights Reserved Reading location - IP/workstation name: [email or web address]
== END 2017-08-08 14:11 | disposition home or self-care (01) ==
LOC: ER 12:16
DX: S09.90XA Unspecified injury of head, initial encounter (principal); R51 Headache; W18.2XXA Fall in (into) shower or empty bathtub, initial encounter; Y93.89 Activity, other specified; Y92.002 Bathroom of unspecified non-institutional (private) residence as the place of occurrence of the external cause; I10 Essential (primary) hypertension; E11.9 Type 2 diabetes mellitus without complications
CPT/HCPCS: 99284; 70450; 72125; A9270

== ENCOUNTER 2018-09-10 19:32 | Emergency (ER) | payer MEDICARE, MEDICAID ==
[2018-09-10 20:26] VITALS: BP 135/68
--- NOTE | 2018-09-10 20:37 | ER Document Report ---
ED Medical Screen (RME) - General Chief Complaint: Tremor Stated Complaint: SHAKING Time Seen by Provider: 09/10/18 20:31 Primary Care Provider: MK COSTELLO PA-C [Primary Care Provider] - Follow up as needed Notes: She presents with a report of shaking episode that occurred this afternoon. Patient states she since had a couple additional episodes of shaking involving her hands and her legs. Patient without any loss of consciousness. No history of seizures. Patient denies any headache, chest pain, difficulty breathing, nausea or vomiting. Family member states that her symptoms started after an emotional confrontation. Family would like some testing performed to make sure patient is okay. I have greeted and performed a rapid initial assessment of this patient. A comprehensive ED assessment and evaluation of the patient, analysis of test results and completion of the medical decision making process will be conducted by additional ED providers. TRAVEL OUTSIDE OF THE [place] IN LAST 30 DAYS: No - Related Data Allergies/Adverse Reactions: No Known Allergies Allergy (Verified 09/10/18 19:34) Past Medical History - Social History Frequency of alcohol use: None Drug Abuse: None Family history: Reviewed & Not Pertinent - Past Medical History Cardiac Medical History: Reports: Hx Hypercholesterolemia, Hx Hypertension Denies: Hx Coronary Artery Disease, Hx Heart Attack Pulmonary Medical History: Denies: Hx Asthma, Hx Bronchitis, Hx COPD, Hx Pneumonia Neurological Medical History: Denies: Hx Cerebrovascular Accident, Hx Seizures Endocrine Medical History: Reports: Hx Diabetes Mellitus Type 2 Renal/ Medical History: Denies: Hx Peritoneal Dialysis GI Medical History: Reports: Hx Gastroesophageal Reflux Disease Musculoskeltal Medical History: Reports Hx Arthritis Past Surgical History: Reports: Hx Hysterectomy, Hx Orthopedic Surgery - Left Ankle. Denies: Hx Pacemaker - Immunizations Hx Diphtheria, Pertussis, Tetanus Vaccination: Yes Physical Exam - Vital signs Vitals: Temp Pulse Resp BP Pulse Ox 98.3 F 62 16 135/68 H 100 09/10/18 20:23 09/10/18 20:23 09/10/18 20:23 09/10/18 20:23 09/10/18 20:23 - Respiratory Respiratory status: No respiratory distress Chest status: Nontender Breath sounds: Normal - Cardiovascular Rhythm: Regular Heart sounds: S1 appreciated, S2 appreciated Course - Vital Signs Vital signs: Temp Pulse Resp BP Pulse Ox 98.3 F 62 16 135/68 H 100 09/10/18 20:23 09/10/18 20:23 09/10/18 20:23 09/10/18 20:23 09/10/18 20:23 Doctor's Discharge - Discharge Referrals: MK COSTELLO PA-C [Primary Care Provider] - Follow up as needed
[2018-09-10 23:26] LABS: ABSOLUTE BASOPHILS # (AUTO) 0.1 10^3/uL (0.0-0.2); ABSOLUTE EOSINOPHILS # (AUTO) 0.1 10^3/uL (0.0-0.6); ABSOLUTE LYMPHOCYTES (AUTO) 2.3 10^3/uL (0.5-4.7); ABSOLUTE MONOCYTES (AUTO) 0.4 10^3/uL (0.1-1.4); ABSOLUTE NEUT (AUTO) 4.9 10^3/uL (1.7-8.2); BASOPHILS % (AUTO) 0.9 % (0-2); EOSINOPHILS % (AUTO) 0.9 % (0-6); HEMATOCRIT 34.9 % (36.0-47.0); HEMOGLOBIN 11.5 g/dL (12.0-15.5); LYMPHOCYTES % (AUTO) 29.7 % (13-45); MEAN CORPUSCULAR HEMOGLOBIN 27.7 pg (27.0-33.4); MEAN CORPUSCULAR VOLUME 84 fl (80-97); MONOCYTES % (AUTO) 5.1 % (3-13); PLATELET COUNT 353 10^3/uL (150-450); RED BLOOD COUNT 4.15 10^6/uL (3.72-5.28); RED CELL DISTRIBUTION WIDTH 13.9 % (11.5-14.0); SEGMENTED NEUTROPHILS % (AUTO) 63.4 % (42-78); TOTAL CELLS COUNTED % (AUTO) 100 %; WHITE BLOOD COUNT 7.8 10^3/uL (4.0-10.5)
[2018-09-10 23:48] LABS: ALANINE AMINOTRANSFERASE 23 U/L (9-52); ALBUMIN 4.3 g/dL (3.5-5.0); ALKALINE PHOSPHATASE 95 U/L (38-126); ANION GAP 10 (5-19); ASPARTATE AMINO TRANSFERASE 22 U/L (14-36); BILIRUBIN,DIRECT 0.2 mg/dL (0.0-0.4); BILIRUBIN,TOTAL 0.5 mg/dL (0.2-1.3); BLOOD UREA NITROGEN 19 mg/dL (7-20); CALCIUM 9.9 mg/dL (8.4-10.2); CARBON DIOXIDE 26 mmol/L (22-30); CHLORIDE 104 mmol/L (98-107); CREATINE KINASE 159 U/L (30-135); GLUCOSE 92 mg/dL (75-110); POTASSIUM 4.8 mmol/L (3.6-5.0); SODIUM 139.6 mmol/L (137-145); TOTAL PROTEIN 7.1 g/dL (6.3-8.2)
[2018-09-11 00:54] LABS: APPEARANCE,URINE CLOUDY; BILIRUBIN,URINE NEGATIVE (NEGATIVE); COLOR,URINE YELLOW; GLUCOSE, URINE NEGATIVE (NEGATIVE); KETONES,URINE NEGATIVE (NEGATIVE); LEUKOCYTE ESTERASE,URINE TRACE (NEGATIVE); NITRITE,URINE NEGATIVE (NEGATIVE); PROTEIN,URINE NEGATIVE (NEGATIVE); URINE SPECIFIC GRAVITY 1.015; UROBILINOGEN,URINE NEGATIVE mg/dL (<2.0)
--- NOTE | 2018-09-11 01:50 | ER Document Report ---
Entered by SACHIN HARPER SCRIBE 09/11/18 0133 Acting as scribe for:ANEL PENA MD ED General - General Chief Complaint: Tremor Stated Complaint: SHAKING Time Seen by Provider: 09/10/18 20:31 Primary Care Provider: MK COSTELLO PA-C [Primary Care Provider] - Follow up as needed Mode of Arrival: Ambulatory Information source: Patient, Relative Notes: Patient is an 83 year old female presenting to the emergency department complaining of tremors onset yesterday. Family at bedside states the patient began to have shaking of her bilateral hands after getting into an argument with her neighbor. She states the shaking lasted for a few hours until arrival to the emergency department. Patient also reports a chronic cough. She denies any other focal symptoms. TRAVEL OUTSIDE OF THE [place] IN LAST 30 DAYS: No - Related Data Allergies/Adverse Reactions: No Known Allergies Allergy (Verified 09/10/18 19:34) Past Medical History - General Information source: Patient - Social History Smoking Status: Never Smoker Cigarette use (# per day): No Chew tobacco use (# tins/day): No Smoking Education Provided: No Frequency of alcohol use: None Drug Abuse: None Family History: Reviewed & Not Pertinent Patient has suicidal ideation: No Patient has homicidal ideation: No - Past Medical History Cardiac Medical History: Reports: Hx Hypercholesterolemia, Hx Hypertension Endocrine Medical History: Reports: Hx Diabetes Mellitus Type 2 GI Medical History: Reports: Hx Gastroesophageal Reflux Disease Musculoskeletal Medical History: Reports Hx Arthritis Past Surgical History: Reports: Hx Hysterectomy, Hx Orthopedic Surgery - Left Ankle - Immunizations Hx Diphtheria, Pertussis, Tetanus Vaccination: Yes Hx Pneumococcal Vaccination: 05/01/12 Review of Systems - Review of Systems Constitutional: No symptoms reported EENT: No symptoms reported Cardiovascular: No symptoms reported Respiratory: No symptoms reported Gastrointestinal: No symptoms reported Genitourinary: No symptoms reported Female Genitourinary: No symptoms reported Musculoskeletal: See HPI Skin: No symptoms reported Hematologic/Lymphatic: No symptoms reported Neurological/Psychological: See HPI, Tremor Physical Exam - Vital signs Vitals: Temp Pulse Resp BP Pulse Ox 98.3 F 62 16 135/68 H 100 09/10/18 20:23 09/10/18 20:23 09/10/18 20:23 09/10/18 20:23 09/10/18 20:23 - Notes Notes: GENERAL: Alert, interacts well. No acute distress. HEAD: Normocephalic, atraumatic. EYES: Pupils equal, round, and reactive to light. Extraocular movements intact. ENT: Oral mucosa moist, tongue midline. NECK: Full range of motion. Supple. Trachea midline. LUNGS: Clear to auscultation bilaterally. Rhonchi with cough. No respiratory distress. HEART: Regular rate and rhythm. No murmurs, gallops, or rubs. ABDOMEN: Soft, non-tender. Non-distended. Bowel sounds present in all 4 quadrants. No guarding, rigidity, or rebound. EXTREMITIES: Moves all 4 extremities spontaneously. Subtle, occasional jerking of the bilateral hands. No edema. NEUROLOGICAL: Alert and oriented x3. Normal speech. PSYCH: Normal affect, normal mood. SKIN: Warm, dry, normal turgor. No rashes or lesions noted. Course - Vital Signs Vital signs: Temp Pulse Resp BP Pulse Ox 98.3 F 62 16 135/68 H 100 09/10/18 20:23 09/10/18 20:23 09/10/18 20:23 09/10/18 20:23 09/10/18 20:23 - Laboratory Result Diagrams: 09/10/18 22:50 09/10/18 22:50 Laboratory results interpreted by me: 09/10/18 09/10/18 09/10/18 22:50 22:50 23:00 Hgb 11.5 L Hct 34.9 L Magnesium 2.4 H Creatine Kinase 159 H Ur Leukocyte Esterase TRACE H - EKG Interpretation by Sd EKG shows normal: Sinus rhythm, [place], Intervals, ST-T Waves. abnormal: QRS Complexes - Abnormal R wave progression Rate: Normal - 64 Rhythm: NSR [place]/QRS: Left axis deviation When compared to previous EKG there are: No significant change Discharge - Discharge Clinical Impression: Episode of shaking Condition: Stable Disposition: HOME, SELF-CARE Additional Instructions: These shaking episodes you describe were probably related to your emotions after the argument with your neighbor. Follow-up with your primary care provider tomorrow if you continue to have more of these shaking episodes. RETURN TO THE EMERGENCY ROOM IF ANY NEW OR WORSENING SYMPTOMS. Referrals: MK COSTELLO PA-C [Primary Care Provider] - Follow up as needed Scribe Attestation: 09/11/18 02:16 I personally performed the services described in the documentation, reviewed and edited the documentation which was dictated to the scribe in my presence, and it accurately records my words and actions. I personally performed the services described in the documentation, reviewed and edited the documentation which was dictated to the scribe in my presence, and it accurately records my words and actions.
--- NOTE | 2018-09-11 10:20 | EKG REPORT ---
SEVERITY:- ABNORMAL ECG - SINUS RHYTHM LEFT AXIS DEVIATION ABNRM R PROG, CONSIDER ASMI OR LEAD PLACEMENT : Confirmed by: Erika Holland MD 11-Sep-2018 10:19:12
== END 2018-09-11 02:25 | disposition home or self-care (01) ==
LOC: ER 19:32
DX: R25.1 Tremor, unspecified (principal); R05 Cough; I10 Essential (primary) hypertension; E11.9 Type 2 diabetes mellitus without complications
CPT/HCPCS: 36415; 80053; 81001; 82550; 83735; 84484; 85025; 93005; 93010; 99283

== ENCOUNTER → 2018-10-24 | Outpatient (CLI) | payer MEDICARE, MEDICAID ==
--- NOTE | 2018-10-24 15:35 | WOMENS IMAGING REPORT ---
EXAM DESCRIPTION: 3D SCREENING MAMMO BILAT COMPLETED DATE/TIME: 10/24/2018 10:24 am REASON FOR STUDY: Z12.31 ENCOUNTER FOR SCREENING MAMMOGRAM FOR MALIGNANT NEOPLASM OF BREAST Z12.31 ENCNTR SCREEN MAMMOGRAM FOR MALIGNANT NEOPLASM OF STEPHANI COMPARISON: 2009 to 2013 EXAM PARAMETERS: Standard craniocaudal and mediolateral oblique views of each breast recorded using digital acquisition and breast tomosynthesis. Read with the assistance of CAD. .[facility] - [employer]ger Insulation Version 9.2 LIMITATIONS: None. FINDINGS: RIGHT BREAST MASSES: Lobulated slightly irregular 9 mm mass approximately 10 o'clock 7 cm from the nipple. CALCIFICATIONS: No new or suspicious calcifications. ARCHITECTURAL DISTORTION: None. DEVELOPING DENSITY: None. ASYMMETRY: None noted. OTHER: No other significant findings. LEFT BREAST MASSES: No suspicious masses. CALCIFICATIONS: No new or suspicious calcifications. ARCHITECTURAL DISTORTION: None. DEVELOPING DENSITY: None. ASYMMETRY: None noted. OTHER: No other significant findings. IMPRESSION: Mass in the right breast 0 Incomplete: Needs Additional Imaging Evaluation and/or prior Mammograms for Comparison. BREAST DENSITY: b. There are scattered areas of fibroglandular density. BIRAD: ASSESSMENT: 0 Incomplete: Needs Additional Imaging Evaluation and/or prior Mammograms for C omparison. RECOMMENDATION: RECOMMENDED FOLLOW-UP: Ultrasound. The patient will be contacted for additional imaging. COMMENT: The patient has been notified of the results by letter per [place] requirements. Additional no tification policies are in place for contacting patient with suspicious or incomplete findings. Quality ID #[id number]: The [employer] recommends an annual screening mammogram for women aged 40 years or over. This facility utilizes a reminder system to ensure that all patients receive reminder letters, and/or direct phone calls for appointments. This includes reminders for routine scr eening mammograms, diagnostic mammograms, or other Breast Imaging Interventions when appropriate. Th is patient will be placed in the appropriate reminder system. TECHNICAL DOCUMENTATION: FINDING NUMBER: (1) ASSESSMENT: (1) JOB ID: [id number] [employer]- All Rights Reserved Reading location - IP/workstation name: [email or web address]
== END ==
LOC: WI 09:46
PROVIDERS: ATTEND Physician Assistant
DX: Z12.31 Encounter for screening mammogram for malignant neoplasm of breast (principal)
CPT/HCPCS: 77063; 77067

== ENCOUNTER → 2018-11-12 | Outpatient (CLI) | payer MEDICARE, MEDICAID ==
--- NOTE | 2018-11-12 17:08 | WOMENS IMAGING REPORT ---
EXAM DESCRIPTION: U/S BREAST UNILATERAL, COMPL COMPLETED DATE/TIME: 11/12/2018 2:11 pm REASON FOR STUDY: N63.11 UNSPECIFIED LUMP IN THE RIGHT BREAST, UPPER OUTER QUADRANT N63.11 UNSPECIF IED LUMP IN THE RIGHT BREAST, UPPER OUTER TAMEKA COMPARISON: None. TECHNIQUE: Real-time and static grayscale imaging performed of the right breast targeted to the area of clinical/mammographic concern. Selected color Doppler images recorded. LIMITATIONS: None. FINDINGS: MASS: In the 10 o'clock position, corresponding to the mammographic abnormality, 14 x 9 x 15 mm hypoechoic lesion with incomplete margins. OTHER: No other significant finding. IMPRESSION: Suspicious finding right breast. BIRAD: 4 Suspicious. Biopsy should be performed in the absence of clinical contra-indication. RECOMMENDATION: RECOMMENDED FOLLOW-UP: Ultrasound-guided biopsy. COMMENT: The [employer] (ACR) has developed recommendations for screening MRI of the breasts in certain patient populations, to be used in conjunction with mammography. Breast MRI s urveillance may be appropriate for women with more than 20% lifetime risk of developing breast cancer as determined by genetic testing, significant family history of the disease, or history of mantle r adiation for Hodgkins Disease. ACR Practice Guidelines 2008. TECHNICAL DOCUMENTATION: JOB ID: [id number] 1980 [employer]- All Rights Reserved Reading location - IP/workstation name: [email or web address]
== END ==
LOC: WI 13:30
PROVIDERS: ATTEND Physician Assistant
DX: N63.11 Unspecified lump in the right breast, upper outer quadrant (principal)
CPT/HCPCS: 76641

== ENCOUNTER 2019-04-23 15:25 | Emergency (ER) | payer MEDICARE, MEDICAID ==
--- NOTE | 2019-04-23 16:57 | ER Document Report ---
ED Medical Screen (RME) - General Chief Complaint: Abdominal Pain Stated Complaint: ABDOMINAL PAIN Time Seen by Provider: 04/23/19 16:48 Primary Care Provider: MK COSTELLO PA-C [Primary Care Provider] - Follow up as needed TRAVEL OUTSIDE OF THE [place] IN LAST 30 DAYS: No - HPI Notes: 04/23/19 16:56 83-year-old female to the emergency department with complaints of left upper venecia drant abdominal pain that is been ongoing for the past week. She states that she was told that she had constipation earlier in the week and was taking MiraLAX. However, she states that she has been having normal bowel movements with her last bowel movement this morning. She states that still her pain persists. States it hurts all the time but a little bit more when she takes a big deep breath. She denies any nausea or vomiting. She denies urinary symptoms. She denies any fevers or chills. Denies any diarrhea. I performed a brief medical screening exam on this patient and determined that she will need further evaluation by main side provider. I have placed initial orders to help expedite her care. - Related Data Allergies/Adverse Reactions: No Known Allergies Allergy (Verified 04/23/19 16:48) Past Medical History - Social History Family history: Reviewed & Not Pertinent - Past Medical History Cardiac Medical History: Reports: Hx Hypercholesterolemia, Hx Hypertension Denies: Hx Coronary Artery Disease, Hx Heart Attack Pulmonary Medical History: Denies: Hx Asthma, Hx Bronchitis, Hx COPD, Hx Pneumonia Neurological Medical History: Denies: Hx Cerebrovascular Accident, Hx Seizures Endocrine Medical History: Reports: Hx Diabetes Mellitus Type 2 Renal/ Medical History: Denies: Hx Peritoneal Dialysis GI Medical History: Reports: Hx Gastroesophageal Reflux Disease Musculoskeltal Medical History: Reports Hx Arthritis Past Surgical History: Reports: Hx Hysterectomy, Hx Orthopedic Surgery - Left Ankle. Denies: Hx Pacemaker - Immunizations Hx Diphtheria, Pertussis, Tetanus Vaccination: Yes Physical Exam - Vital signs Vitals: Temp Pulse Resp BP Pulse Ox 97.8 F 62 16 153/80 H 94 04/23/19 15:33 04/23/19 15:33 04/23/19 15:33 04/23/19 15:33 04/23/19 15:33 Course - Vital Signs Vital signs: Temp Pulse Resp BP Pulse Ox 97.8 F 62 16 153/80 H 94 04/23/19 15:33 04/23/19 15:33 04/23/19 15:33 04/23/19 15:33 04/23/19 15:33 Doctor's Discharge - Discharge Referrals: MK COSTELLO PA-C [Primary Care Provider] - Follow up as needed
[2019-04-23 18:19] LABS: ABSOLUTE EOSINOPHILS # (AUTO) 0.1 10^3/uL (0.0-0.6); ABSOLUTE MONOCYTES (AUTO) 0.3 10^3/uL (0.1-1.4); ABSOLUTE NEUT (AUTO) 3.8 10^3/uL (1.7-8.2); BASOPHILS % (AUTO) 0.4 % (0-2); EOSINOPHILS % (AUTO) 1.2 % (0-6); HEMATOCRIT 35.5 % (36.0-47.0); HEMOGLOBIN 11.9 g/dL (12.0-15.5); LYMPHOCYTES % (AUTO) 31.9 % (13-45); MEAN CORPUSCULAR HEMOGLOBIN 28.5 pg (27.0-33.4); MEAN CORPUSCULAR HGB CONC 33.5 g/dL (32.0-36.0); MEAN CORPUSCULAR VOLUME 85 fl (80-97); MONOCYTES % (AUTO) 5.3 % (3-13); PLATELET COUNT 336 10^3/uL (150-450); RED BLOOD COUNT 4.16 10^6/uL (3.72-5.28); RED CELL DISTRIBUTION WIDTH 13.4 % (11.5-14.0); SEGMENTED NEUTROPHILS % (AUTO) 61.2 % (42-78); TOTAL CELLS COUNTED % (AUTO) 100 %; WHITE BLOOD COUNT 6.2 10^3/uL (4.0-10.5)
[2019-04-23 18:37] LABS: ALBUMIN 4.2 g/dL (3.5-5.0); ALKALINE PHOSPHATASE 88 U/L (38-126); ANION GAP 6 (5-19); ASPARTATE AMINO TRANSFERASE 22 U/L (14-36); BILIRUBIN,TOTAL 0.4 mg/dL (0.2-1.3); BLOOD UREA NITROGEN 6 mg/dL (7-20); CALCIUM 9.7 mg/dL (8.4-10.2); CARBON DIOXIDE 30 mmol/L (22-30); CHLORIDE 104 mmol/L (98-107); GLUCOSE 91 mg/dL (75-110); POTASSIUM 4.8 mmol/L (3.6-5.0)
--- NOTE | 2019-04-23 21:35 | RADIOLOGY REPORT (SQ) ---
EXAM DESCRIPTION: CT ABDOMEN PELVIS WITH IV CONTRAST COMPLETED DATE/TME: 04/23/2019 16:54 CLINICAL HISTORY: 83 years, Female, LUQ abd pain COMPARISON: None. TECHNIQUE: Images stored on PACS. All CT scanners at this facility use dose modulation, iterative reconstruction, and/or weight based dosing when appropriate to reduce radiation dose to as low as reasonably achievable (ALARA). [facility]: Dose Right [facility]: CareDose [facility]: Dose Right [facility]: Teradose 4D [facility]: [employer] LIMITATIONS: None. FINDINGS: Lung bases are grossly clear. Chronic changes are seen. The heart is top normal. No pleural or pericardial fluid. The liver is fatty infiltrated. Gallbladder is physiologically distended. The pancreas is homogeneous. The spleen appears normal. The adrenals appear normal. The kidneys demonstrate simple appearing cyst. No other significant findings. No urolithiasis hydronephrosis or hydroureter. The bowel is nonobstructed. It is unopacified with oral contrast. A few scattered diverticula are seen without acute inflammatory change. The appendix appears normal. Small amount of free fluid in the deep pelvis. No free air. Remote postsurgical change is seen. Please correlate with history. 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 Postsurgical change to the retroperitoneum. IMPRESSION: No obstruction or free air. Small left free fluid is seen within the deep pelvis. No other significant findings. The cause of the patient's left upper quadrant pain is not identified on this examination. TECHNICAL DOCUMENTATION: Quality ID # 436: Final reports with documentation of one or more dose reduction techniques (e.g., Automated exposure control, adjustment of the mA and/or kV according to patient size, use of iterative reconstruction technique) copyright 2011 [employer]- All Rights Reserved
[2019-04-23] MEDS ORDERED: ACETAMINOPHEN 325 MG TABLET PO ONE (21:37)
--- NOTE | 2019-04-23 21:39 | ER Document Report ---
ED General - General Chief Complaint: Abdominal Pain Stated Complaint: ABDOMINAL PAIN Time Seen by Provider: 04/23/19 16:48 Primary Care Provider: MK COSTELLO PA-C [Primary Care Provider] - Follow up as needed TRAVEL OUTSIDE OF THE [place] IN LAST 30 DAYS: No - HPI Onset: Last week Onset/Duration: Gradual Quality of pain: Achy Severity: Moderate Context: 83 year old female is a pt of Mk Costello and arrives with complaints of left upper quadrant pain over the last week. She had an xray done the first of this week and was told constipation may be playing a role which she is prone to. She was started on Miralax and is moving her bowels without difficulty. She denies injury. The sharp LUQ pain is worse with cough or twisting or deep breath. Exacerbated by: Denies Relieved by: Denies Similar symptoms previously: Yes Recently seen / treated by doctor: Yes - Dr Costello Saturday - Related Data Allergies/Adverse Reactions: No Known Allergies Allergy (Verified 04/23/19 16:48) Home Medications: bp. loratadine. metformin. espmeprazole. amlodipine. tizandine. atorvastin Past Medical History - Social History Smoking Status: Unknown if Ever Smoked Chew tobacco use (# tins/day): No Frequency of alcohol use: None Drug Abuse: None Family History: Reviewed & Not Pertinent Patient has suicidal ideation: No Patient has homicidal ideation: No - Past Medical History Cardiac Medical History: Reports: Hx Hypercholesterolemia, Hx Hypertension Denies: Hx Coronary Artery Disease, Hx Heart Attack Pulmonary Medical History: Denies: Hx Asthma, Hx Bronchitis, Hx COPD, Hx Pneumonia Neurological Medical History: Denies: Hx Cerebrovascular Accident, Hx Seizures Endocrine Medical History: Reports: Hx Diabetes Mellitus Type 2 Renal/ Medical History: Denies: Hx Peritoneal Dialysis GI Medical History: Reports: Hx Gastroesophageal Reflux Disease Musculoskeletal Medical History: Reports Hx Arthritis Past Surgical History: Reports: Hx Hysterectomy, Hx Orthopedic Surgery - Left Ankle. Denies: Hx Pacemaker - Immunizations Hx Diphtheria, Pertussis, Tetanus Vaccination: Yes Hx Pneumococcal Vaccination: 05/01/12 Review of Systems - Review of Systems Constitutional: No symptoms reported EENT: No symptoms reported Cardiovascular: No symptoms reported Respiratory: No symptoms reported Gastrointestinal: No symptoms reported Genitourinary: No symptoms reported Female Genitourinary: No symptoms reported Musculoskeletal: No symptoms reported Skin: No symptoms reported Hematologic/Lymphatic: No symptoms reported Neurological/Psychological: No symptoms reported Physical Exam - Vital signs Vitals: Temp Pulse Resp BP Pulse Ox 97.8 F 62 16 153/80 H 94 04/23/19 15:33 04/23/19 15:33 04/23/19 15:33 04/23/19 15:33 04/23/19 15:33 Interpretation: Normal - General General appearance: Appears well, Alert - HEENT Head: Normocephalic, Atraumatic Eyes: Normal Pupils: PERRL - Respiratory Respiratory status: No respiratory distress Chest status: Nontender Breath sounds: Normal Chest palpation: Normal - Cardiovascular Rhythm: Regular Heart sounds: Normal auscultation Murmur: No - Abdominal Inspection: Normal Distension: No distension Bowel sounds: Normal Tenderness: Tender - Mild ttp luq at costal margin. No mass or deformity. Organomegaly: No organomegaly - Back Back: Normal, Nontender - Extremities General upper extremity: Normal inspection, Nontender, Normal color, Normal ROM, Normal temperature General lower extremity: Normal inspection, Nontender, Normal color, Normal ROM, Normal temperature, Normal weight bearing. No: Alex's sign - Neurological Neuro grossly intact: Yes Cognition: Normal Orientation: AAOx4 Pancho Coma Scale Eye Opening: Spontaneous Pancho Coma Scale Verbal: Oriented Pancho Coma Scale Motor: Obeys Commands Pancho Coma Scale Total: 15 Speech: Normal Motor strength normal: LUE, RUE, LLE, RLE Sensory: Normal - Psychological Associated symptoms: Normal affect, Normal mood - Skin Skin Temperature: Warm Skin Moisture: Dry Skin Color: Normal Course - Re-evaluation Re-evalutation: 04/23/19 23:15 MDM 83 year old female arrives with complaints of LUQ abd pain for about a week. Definately worse with movement. No injury. No palpable abnormality but definatley some ttp on exam. Also a deep breath causes some pain but no chest pain and no sob. Doubt pulmonary process although it has been considered. She had a sono of left breast about 6 months and biopsy was rec but pt and family are not sure what actually was done or if in fact biopsy was done. This may represent musculoskeletal pain. The Ct and blood work are reassuring. Without abnormalities of left base of lung on Ct and no h/o thrombotic disease - and no leg pain - feel that PE in this non tachy pt with nl resp rate is unlikely. Additionally she has pcp locally who she can see closely in follow up. - Vital Signs Vital signs: Temp Pulse Resp BP Pulse Ox 97.8 F 62 16 153/80 H 94 04/23/19 15:33 04/23/19 15:33 04/23/19 15:33 04/23/19 15:33 04/23/19 15:33 - Laboratory Result Diagrams: 04/23/19 17:45 04/23/19 17:45 Laboratory results interpreted by me: 04/23/19 04/23/19 04/23/19 17:45 17:45 22:30 Hgb 11.9 L Hct 35.5 L BUN 6 L Ur Leukocyte Esterase TRACE H - Diagnostic Test Radiology reviewed: Reports reviewed Discharge - Discharge Clinical Impression: Left upper quadrant pain Condition: Good Disposition: HOME, SELF-CARE Instructions: Abdominal Pain ([facility]), Muscle Strain ([facility]) Additional Instructions: See Mk Costello in follow up. Call in the morning. Take tylenol for pain - either 650 mg or 975 mg as needed every 6 hours. Return here for any problems or concerns including but not limited to chest pain or shortness of breath. Referrals: MK COSTELLO PA-C [Primary Care Provider] - Follow up as needed
[2019-04-23 23:02] LABS: APPEARANCE,URINE CLEAR; BILIRUBIN,URINE NEGATIVE (NEGATIVE); COLOR,URINE YELLOW; GLUCOSE, URINE NEGATIVE (NEGATIVE); KETONES,URINE NEGATIVE (NEGATIVE); LEUKOCYTE ESTERASE,URINE TRACE (NEGATIVE); NITRITE,URINE NEGATIVE (NEGATIVE); PROTEIN,URINE NEGATIVE (NEGATIVE); UROBILINOGEN,URINE NEGATIVE mg/dL (<2.0)
[2019-04-23 23:15] LABS: URINE SPECIFIC GRAVITY > 1.060
[2019-04-24 00:06] VITALS: BP 146/89
== END 2019-04-24 00:06 | disposition home or self-care (01) ==
LOC: ER 15:25
DX: R10.12 Left upper quadrant pain (principal); E78.00 Pure hypercholesterolemia, unspecified; I10 Essential (primary) hypertension; E11.9 Type 2 diabetes mellitus without complications; Z90.710 Acquired absence of both cervix and uterus; Z79.84 Long term (current) use of oral hypoglycemic drugs
CPT/HCPCS: 99284; 36415; 83690; 85025; 80053; 81001; 74177; A9270

== ENCOUNTER 2019-09-27 11:25 | Emergency (ER) | payer MEDICARE, MEDICAID ==
[2019-09-27] MEDS ORDERED: NORMAL SALINE 500 ML IV ONE (11:46)
[2019-09-27] MEDS ORDERED: ASPIRIN 81 MG TABLET, CHEWABLE PO ONE (11:47)
[2019-09-27] MEDS ORDERED: FAMOTIDINE INJ/PF 20 MG/2 ML SDV IV ONE (11:47)
--- NOTE | 2019-09-27 11:52 | ER Document Report ---
ED Dizziness/Weakness - General Chief Complaint: General Weakness Stated Complaint: GENERAL WEAKNESS Time Seen by Provider: 09/27/19 11:42 Primary Care Provider: MK COSTELLO PA-C [Primary Care Provider] - Follow up as needed Mode of Arrival: Medic Information source: Patient Notes: 84-year-old woman presents to the emergency department with a history of awakening this morning with dizziness and weakness. States that she felt off balance and really not herself. She denies focal weakness or speech difficulties. Her symptoms lasted for approximately an hour. She was able to walk to her porch and a neighbor called 911. EMS transported her to the emergency department, blood sugar was 86 vital signs appeared to be otherwise stable. She has a history of diabetes mellitus and hypertension along with elevated BMI. TRAVEL OUTSIDE OF THE [place] IN LAST 30 DAYS: No - Related Data Allergies/Adverse Reactions: No Known Allergies Allergy (Verified 04/23/19 16:48) Home Medications: Metformin, lopressor Past Medical History - Social History Smoking Status: Never Smoker Frequency of alcohol use: None Drug Abuse: None Family History: Reviewed & Not Pertinent Patient has homicidal ideation: No - Past Medical History Cardiac Medical History: Reports: Hx Hypercholesterolemia, Hx Hypertension Denies: Hx Coronary Artery Disease, Hx Heart Attack Pulmonary Medical History: Denies: Hx Asthma, Hx Bronchitis, Hx COPD, Hx Pneumonia Neurological Medical History: Denies: Hx Cerebrovascular Accident, Hx Seizures Endocrine Medical History: Reports: Hx Diabetes Mellitus Type 2 Renal/ Medical History: Denies: Hx Peritoneal Dialysis GI Medical History: Reports: Hx Gastroesophageal Reflux Disease Musculoskeletal Medical History: Reports Hx Arthritis Past Surgical History: Reports: Hx Hysterectomy, Hx Orthopedic Surgery - Left Ankle. Denies: Hx Pacemaker - Immunizations Hx Diphtheria, Pertussis, Tetanus Vaccination: Yes Hx Pneumococcal Vaccination: 05/01/12 Review of Systems - Review of Systems Notes: Constitutional: Negative for fever. HENT: Negative for sore throat. Eyes: Negative for visual changes. Cardiovascular: Negative for chest pain. Respiratory: Negative for shortness of breath. Gastrointestinal: + Belching, + mild abdominal discomfort. Genitourinary: Negative for dysuria. Musculoskeletal: Negative for back pain. Skin: Negative for rash. Neurological: + Dizziness, + weakness. 10 point ROS negative except as marked above and in HPI. Physical Exam - Vital signs Vitals: Resp Pulse Ox 18 100 09/27/19 11:32 09/27/19 11:32 - Notes Notes: PHYSICAL EXAMINATION: Physical Exam: General: Well-nourished well-developed mildly ill 84-year-old woman in no acute distress HEENT: NC/AT, pupils equal round and reactive to light, MM moist,nares clear, oropharynx clear, airway patent Neck: supple, no adenopathy, no masses. Good range of motion Lungs: clear, no wheezing, no rales no rhonchi CVS: Regular rate and rhythm no murmur gallop or rub Abdomen: Soft, active, nontender, no masses, no hepatosplenomegaly, + belching episodes during the exam. Ext: No edema, clubbing or cyanosis. Neuro: Alert and responsive, moving all 4 extremities on command, cranial nerves intact, no focal findings Skin: Intact no open lesions, no rash PSYCH: Normal mood, normal affect. Course - Vital Signs Vital signs: Temp Pulse Resp BP Pulse Ox 98.6 F 16 128/70 H 100 09/27/19 11:37 09/27/19 13:00 09/27/19 13:01 09/27/19 13:00 - Laboratory Result Diagrams: 09/27/19 11:58 09/27/19 11:58 Laboratory results interpreted by me: 09/27/19 09/27/19 09/27/19 11:58 11:58 12:10 RBC 3.56 L Hgb 10.6 L Hct 30.9 L Sodium 135.7 L Ur Leukocyte Esterase TRACE H I have reviewed laboratory data and used this information for the treatment d ecisions regarding the patient. - Diagnostic Test Radiology reviewed: Image reviewed, Reports reviewed Radiology results interpreted by me: 09/27/19 18:01 Chest x-ray: No acute cardiopulmonary findings CT head: No acute intracranial findings. - EKG Interpretation by Ca EKG shows normal: Sinus rhythm, Intervals, QRS Complexes - Poor R wave progression in anterior leads, ST-T Waves - Flattening of the T waves suggestive of possible ischemic changes. Rate: Normal - Rate 56. [place]/QRS: Left axis deviation Discharge - Discharge Clinical Impression: Postural dizziness, Generalized weakness GERD (gastroesophageal reflux disease) Qualifiers: Esophagitis presence: without esophagitis Qualified Code(s): K21.9 - Gastro- esophageal reflux disease without esophagitis Condition: Good Disposition: HOME, SELF-CARE Instructions: Dizziness ([facility]), Reflux Disease (GERD) ([facility]) Additional Instructions: You were seen in the emergency department today with dizziness and weakness. Also symptoms of reflux. You are given prescriptions for reflux and your evaluation for heart related problems was negative. Please take the medications as prescribed and follow-up with your doctor as needed. When you are getting up in the morning please sit on the edge of the bed for a few moments with your feet dangling to give your blood pressure checks to normalize. Postural dizziness can occur if you stand to suddenly. If your symptoms are worsening or if you have other concerns you may return to the emergency department as needed HOME CARE INSTRUCTIONS & INFORMATION: Thank you for choosing us for your m edical needs. We hope you're satisfied with the care you received. After you leave, you must properly care for your problem and, at the same time, observe its progress. Any condition can change. Some illnesses can change rapidly over hours or days. If your condition worsens, return to the Emergency Department or see your physician promptly. ABOUT YOUR X-RAYS AND EKG'S: If you had an EKG or X-rays taken, they have been read by the Emergency Physician. The X-rays and EKG's will also be read by a Radiologist or Administrative Intern within 24 hours. If discrepancies are noted, you will be notified by telephone. Please be certain the ED has a correct telephone number & address where you can be reached. Also, realize that some fractures or abnormalities do not show up on initial X-rays. If your symptoms continue, see your physician. ABOUT YOUR LABORATORY TEST: If you had laboratory tests, the results have been reviewed by the Emergency Physician. Some test results (for example cultures) may not be available for several days. You will be contacted if any test result shows you need additional treatment. Please be certain the ED has a correct telephone number and address where you can be reached. ABOUT YOUR MEDICATIONS: You will receive instructions on how to take your medicine on the prescription label you receive. Additional information may be provided by the Pharmacy. If you have questions afterwards, call the ED for clarification or further instructions. Some prescribed medications may cause drowsiness. Do not perform tasks such as driving a car or operating machinery without consulting your Pharmacist. If you feel you need a refill of pain medication, your condition will need re-evaluation. Please do not call for a refill of any medication. ABOUT YOUR SIGNATURE: Signature of this document acknowledges to followin. Understanding that you received emergency treatment and that you may be released before al medical problems are known or treated. Please be certain the ED has a correct phone number & address where you can be reached. 2. Acknowledgement that you will arrange for follow-up care as recommended. 3. Authorization for the Emergency Physician to provide information to your follow-up Physician in order to maximize your care. AT ANY TIME, IF YOUR SYMPTOMS CHANGE SIGNIFICANTLY OR WORSEN OR YOU DEVELOP NEW SYMPTOMS, RETURN TO THE EMERGENCY DEPARTMENT IMMEDIATELY FOR RE-EVALUATION. OUR GOAL IS TO PROVIDE EXCELLENT MEDICAL CARE! WE HOPE THAT WE HAVE MET YOUR EXPECTATIONS DURING YOUR EMERGENCY DEPARTMENT VISIT AND THAT YOU FEEL YOU HAVE RECEIVED EXCELLENT CARE! Prescriptions: Omeprazole 40 mg PO DAILY #20 capsule. Referrals: MK COSTELLO PA-C [Primary Care Provider] - Follow up as needed
[2019-09-27 12:08] LABS: ABSOLUTE BASOPHILS # (AUTO) 0.1 10^3/uL (0.0-0.2); ABSOLUTE EOSINOPHILS # (AUTO) 0.1 10^3/uL (0.0-0.6); ABSOLUTE LYMPHOCYTES (AUTO) 1.5 10^3/uL (0.5-4.7); ABSOLUTE MONOCYTES (AUTO) 0.5 10^3/uL (0.1-1.4); ABSOLUTE NEUT (AUTO) 3.3 10^3/uL (1.7-8.2); BASOPHILS % (AUTO) 1.2 % (0-2); EOSINOPHILS % (AUTO) 1.8 % (0-6); HEMATOCRIT 30.9 % (36.0-47.0); HEMOGLOBIN 10.6 g/dL (12.0-15.5); LYMPHOCYTES % (AUTO) 27.4 % (13-45); MEAN CORPUSCULAR HEMOGLOBIN 29.7 pg (27.0-33.4); MEAN CORPUSCULAR HGB CONC 34.2 g/dL (32.0-36.0); MEAN CORPUSCULAR VOLUME 87 fl (80-97); MONOCYTES % (AUTO) 8.7 % (3-13); PLATELET COUNT 302 10^3/uL (150-450); RED BLOOD COUNT 3.56 10^6/uL (3.72-5.28); RED CELL DISTRIBUTION WIDTH 13.5 % (11.5-14.0); SEGMENTED NEUTROPHILS % (AUTO) 60.9 % (42-78); TOTAL CELLS COUNTED % (AUTO) 100 %; WHITE BLOOD COUNT 5.4 10^3/uL (4.0-10.5)
[2019-09-27 12:23] LABS: ALKALINE PHOSPHATASE 70 U/L (38-126); ANION GAP 5 (5-19); ASPARTATE AMINO TRANSFERASE 20 U/L (14-36); BILIRUBIN,TOTAL 0.3 mg/dL (0.2-1.3); BLOOD UREA NITROGEN 20 mg/dL (7-20); CALCIUM 9.6 mg/dL (8.4-10.2); CARBON DIOXIDE 27 mmol/L (22-30); CHLORIDE 104 mmol/L (98-107); CREATINE KINASE 112 U/L (30-135); GLUCOSE 78 mg/dL (75-110); POTASSIUM 4.5 mmol/L (3.6-5.0); TOTAL PROTEIN 6.7 g/dL (6.3-8.2)
[2019-09-27 12:29] LABS: APPEARANCE,URINE SLIGHTLY-CLOUDY; BILIRUBIN,URINE NEGATIVE (NEGATIVE); COLOR,URINE YELLOW; GLUCOSE, URINE NEGATIVE (NEGATIVE); KETONES,URINE NEGATIVE (NEGATIVE); LEUKOCYTE ESTERASE,URINE TRACE (NEGATIVE); NITRITE,URINE NEGATIVE (NEGATIVE); PROTEIN,URINE NEGATIVE (NEGATIVE); URINE SPECIFIC GRAVITY 1.006; UROBILINOGEN,URINE NEGATIVE mg/dL (<2.0)
[2019-09-27 12:39] LABS: CREATINE KINASE MB 0.72 ng/mL (<4.55); TROPONIN I < 0.012 ng/mL
--- NOTE | 2019-09-27 12:59 | RADIOLOGY REPORT (SQ) ---
EXAM DESCRIPTION: CT HEAD WITHOUT IMAGES COMPLETED DATE/TIME: 09/27/2019 12:41 pm REASON FOR STUDY: dizziness/weakness COMPARISON: 08/08/2017 TECHNIQUE: Axial images acquired through the brain without intravenous contrast. Images reviewed wit h bone, brain and subdural windows. Images stored on PACS. All CT scanners at this facility use dose modulation, iterative reconstruction, and/or weight based d osing when appropriate to reduce radiation dose to as low as reasonably achievable (ALARA). [facility]: Dose Right [facility]: CareDose [facility]: Dose Right [facility]: Teradose 4D [facility]: [facility] RADIATION DOSE: CT Rad equipment meets quality standard of care and radiation dose reduction techniq ues were employed. CTDIvol: 53.2 mGy. DLP: 1017 mGy-cm.. LIMITATIONS: None. FINDINGS: VENTRICLES: Normal size and contour. CEREBRUM: No masses. No hemorrhage. No midline shift. Stable appearance of the white matter. No evid ence for acute infarction. CEREBELLUM: No masses. No hemorrhage. No alteration of density. No evidence for acute infarction. EXTRA-AXIAL SPACES: No fluid collections. ORBITS AND GLOBE: No intra- or extraconal masses. Normal contour of globe without masses. CALVARIUM: No fracture. PARANASAL SINUSES: No fluid or mucosal thickening. SOFT TISSUES: No mass or hematoma. OTHER: No other significant finding. IMPRESSION: NO ACUTE INTRACRANIAL FINDINGS. EVIDENCE OF ACUTE STROKE: NO. TECHNICAL DOCUMENTATION: JOB ID: [id number] [place]-[id number] Quality ID # 436: Final reports with documentation of one or more dose reduction techniques (e.g., Au tomated exposure control, adjustment of the mA and/or kV according to patient size, use of iterative reconstruction technique) 2010 [employer]- All Rights Reserved Reading location - IP/workstation name: [email or web address]
[2019-09-27] MEDS ORDERED: METOCLOPRAMIDE HCL ORAL SOLN 10 MG/10 ML UDCUP PO ONE (14:45)
[2019-09-27] MEDS ORDERED: MAG HYDROX/AL HYDROX/SIMETH SUSP 30 ML UDCUP PO ONE (14:45)
[2019-09-27] MEDS ORDERED: LIDOCAINE 2% VISCOUS SOLN 15 ML UDCUP PO ONE (14:45)
--- NOTE | 2019-09-27 17:24 | EKG REPORT ---
SEVERITY:- ABNORMAL ECG - SINUS RHYTHM BORDERLINE LEFT AXIS DEVIATION CONSIDER ANTEROSEPTAL INFARCT BORDERLINE T ABNORMALITIES, LATERAL LEADS : Confirmed by: Erika Holland MD 27-Sep-2019 17:23:33
[2019-09-27 19:04] VITALS: BP 140/80
== END 2019-09-27 18:45 | disposition home or self-care (01) ==
LOC: ER 11:25
DX: R53.1 Weakness (principal); R42 Dizziness and giddiness; K21.9 Gastro-esophageal reflux disease without esophagitis; E11.9 Type 2 diabetes mellitus without complications; I10 Essential (primary) hypertension; Z79.84 Long term (current) use of oral hypoglycemic drugs; Z79.899 Other long term (current) drug therapy
CPT/HCPCS: 93005; 99285; 96361; 96374; 36415; 82553; 82550; 85025; 80053; 81001; 84484; 70450; 93010; A9270 ×3; J3490; J7040; S0028

== ENCOUNTER → 2020-01-27 | Outpatient (CLI) | payer MEDICARE, MEDICAID ==
--- NOTE | 2020-01-27 17:08 | RADIOLOGY REPORT (SQ) ---
EXAM DESCRIPTION: CHEST PA/LATERAL IMAGES COMPLETED DATE/TIME: 01/27/2020 3:03 pm REASON FOR STUDY: MILD INTERMITTENT ASTHMA, UNCOMPLICATED COMPARISON: 08/16/2016. EXAM PARAMETERS: NUMBER OF VIEWS: two views TECHNIQUE: Digital Frontal and Lateral radiographic views of the chest acquired. RADIATION DOSE: NA LIMITATIONS: none FINDINGS: LUNGS AND PLEURA: Mild scarring in the lung bases. No focal infiltrates, masses or pneumo thorax. No pleural effusion. MEDIASTINUM AND HILAR STRUCTURES: No masses or contour abnormalities. HEART AND VASCULAR STRUCTURES: Heart normal size. No evidence for failure. BONES: No acute findings. HARDWARE: None in the chest. OTHER: No other significant finding. IMPRESSION: MILD SCARRING. NO ACUTE RADIOGRAPHIC FINDING IN THE CHEST. TECHNICAL DOCUMENTATION: JOB ID: [id number] 2010 [employer]- All Rights Reserved Reading location - IP/workstation name: [email or web address]
== END ==
LOC: OD 14:45
PROVIDERS: ATTEND Physician Assistant
DX: J45.20 Mild intermittent asthma, uncomplicated (principal)
CPT/HCPCS: 71046